=== PATIENT | female | born 1970 | race Caucasian/White ===

== ENCOUNTER 2017-03-17 11:35 | Emergency (ER) | payer BC, OTHER ==
[~2017-03-17] VITALS: Ht 160 cm; Wt 110.2 kg
[~2017-03-17 11:35] MED LIST: ADVAIR 250/501 DISK IH; ADVIL,NUPRIN,M200 MG PO; BENADRYL25 MG PO; CLARINEX-D 241 EACH PO; CLARITIN-D 21 TABLET PO; CORTIZONE-1028 GM TP; FLEXERIL5 MG PO; FLONASE16 G1 BOTH NARES; LEVOTHYROXINE25 MCG PO; LISINOPRIL10 MG PO; MELOXICAM15 MG PO; MOTRIN IB200 MG PO; NAPROSYN500 MG PO; NASACORT10.8 ML BOTH NARES; NORTRIPTYLINE H25 MG PO; OMEPRAZOLE40 M1 PO; PROAIR HFA8.5 GM IH; RANITIDINE HCL300 MG PO; SINGULAIR10 MG PO; TOPAMAX50 MG PO; ULTRAM50 MG PO; VICTOZA0.6 MG/0.1 SC; WELLBUTRIN XL300 MG PO; ZOFRAN4 MG PO
[2017-03-17 12:36] LABS: HEMATOCRIT 38.6 % (36.0-46.0); MCH 29.7 PG (29.0-34.0); MCHC 33.7 G/DL (30.0-36.0); MCV 88.3 FL (83-99); MEAN PLAT.VOLUME 9.7 uM^3 (9.5-12.4); PLATELET COUNT 258 K/uL (156-360); RBC DIS.WIDTH-CV 13.2 % (11.8-14.6); RBC DIS.WIDTH-SD 42.8 % (39-53); RED BLOOD COUNT 4.37 M/uL (3.80-5.20); WHITE BLOOD COUNT 5.6 K/uL (4.1-10.2)
[2017-03-17 12:44] LABS: CHLORIDE 109 mEq/L (99-109); POTASSIUM 3.9 mEq/L (3.7-5.4); SODIUM 141 mEq/L (136-147)
[2017-03-17 12:46] LABS: GLUCOSE 95 mg/dL (70-99)
[2017-03-17 12:47] LABS: ANION GAP 8 MEQ/L (2-14)
[2017-03-17 12:50] LABS: GFR ESTIMATE (CALCULATED) > 59 mL/min/
[2017-03-17 12:51] LABS: UREA NITROGEN (BUN) 11 mg/dL (9-23)
[2017-03-17 13:12] LABS: TROP-I INTERPRETATION NEGATIVE; TROPONIN-I < 0.01 ng/mL (0.0-0.30)
[2017-03-17 14:09] VITALS: BP 105/74
== END 2017-03-17 14:12 | disposition home or self-care (01) ==
LOC: EME 11:35
PROVIDERS: Emergency Medicine
DX: J45.901 Unspecified asthma with (acute) exacerbation (principal); R07.9 Chest pain, unspecified; F32.9 Major depressive disorder, single episode, unspecified
CPT/HCPCS: 71020; 80048; 84484; 85027; 93005; 94640; 99281; 99284